=== PATIENT | female | born 1935 | race Caucasian/White ===

== ENCOUNTER 2019-08-07 10:51 | Inpatient (IN) | payer MEDICARE, SELFPAY ==
[2019-08-07] VITALS (12 sets, daily range): BP systolic 117–219; BP diastolic 61–126; PULSE 59–100; RESP 16–20; TEMP 36.7–36.9; O2SAT 92–95; BMI 17.2
--- NOTE | 2019-08-07 11:03 | PC.NURSE ---
Patient arrives via EMS with a chief complaint of weakness, nausea, vomiting, and cough. Patient reports that she was seen at [facility] last week and diagnosed with bronchitis. Patient states that she has been vomiting and weak, Patient denies abdominal pain.
--- NOTE | 2019-08-07 11:11 | XR_ITS ---
WS: [id number] XR chest 2V* 34740 REASON FOR EXAM: cough, difficulty breathing FINDINGS: The lung merritt are hyper aerated. Decreased vascularity is seen. There is some fibrosis ch anges noted. There is borderline enlarged. The hilum and apices are normal. XR/XR chest 2V* [id number] IMPRESSION: Chronic obstructive pulmonary disease with bronchitis changes.
--- NOTE | 2019-08-07 11:12 | W.ED.WEAKNES ---
HPI - Weakness General: Chief complaint: Shortness of Breath/Dyspnea Stated complaint: n/v, weakness Time Seen by Provider: 08/07/19 11:01 Source: patient, EMS and RN notes reviewed Mode of arrival: EMS Limitations: other (poor historian) History of Present Illness: HPI Narrative: Patient is an 83-year-old female who was brought in by EMS with complaints of cough, nausea, difficulty breathing. The patient was seen at [facility] 6 days ago and she says she was diagnosed with bronchitis. She says she has not filled her prescriptions that she was given as her daughter has not done it. She denies a fever. She however complains of headache. She also has markedly decreased appetite. She is therefore here to be evaluated. She feels generalized weakness. Associated symptoms: Reports chest pain and nausea; Denies dysuria or headache(s) Review of Systems General: Reports: 10 or more systems reviewed and unremarkable except in HPI and below Const: Reports: fatigue Eyes: Reports: blind spots; Denies: change in vision or blurry vision ENMT: Denies: throat pain, enlarged tonsils, painful swallowing, hoarseness, mouth pain or swelling of lips/tongue Card: Reports: chest pain; Denies: palpitations, irregular heart rhythm, edema or swelling of feet/ankles Resp: Reports: shortness of breath and non-productive cough GI: Reports: nausea : Denies: flank pain, difficulty urinating, painful urination, urinary frequency, urinary urgency or urinary hesitancy Musc: Denies: neck pain, back pain or extremity swelling Skin/Breast: Denies: rash, itching or redness Neuro: Denies: headache, numbness in extremities or weakness in extremities Endo: Denies: excessive urination, excessive thirst or tired all the time [facility] ED PFSH: Social History (Reviewed 08/07/19 @ 12:20 by Nabila Andrade MD, [facility]) Smoking and tobacco status: never smoked Physical Exam Const: COMMON NORMALS: no apparent distress, average body habitus, oriented x3, no limitations, healthy appearing, alert and well nourished HENMT: COMMON NORMALS: normocephalic, head/scalp atraumatic and moist oral mucous membranes HEAD & SCALP: normocephalic and atraumatic Eye: COMMON NORMALS: PERRL, EOMs intact bilaterally, conjunctivae normal and no scleral icterus CONJUNCTIVA: Yes conjunctivae normal PUPIL: Yes PERRL Neck/C-Spine: COMMON NORMALS: full ROM, supple, no meningeal signs, no JVD and no carotid bruits Chest: COMMONS NORMALS: inspection of chest normal and palpation of chest normal Resp: COMMON NORMALS: normal respiratory effort, no retractions, no use of accessory muscles and percussion normal AUSCULTATION: rales on the right in the lower lung merritt and on the left throughout PERCUSSION: percussion normal Cardio: COMMON NORMALS: no JVD, regular rate, regular rhythm, S1 normal heart sound, S2 normal heart sound, no gallops, no clicks, no murmurs, no rub and peripheral pulses 2+ throughout RATE: regular rate RHYTHM: regular rhythm HEART SOUNDS: S1 normal and S2 normal PERIPHERAL PULSES: pulses 2+ throughout GI: COMMON NORMALS: normal to inspection, nondistended, normoactive bowel sounds, soft to palpation, non-tender, no hepatosplenomegaly, no masses and no bruits PALPATION: Yes soft and Yes no hepatosplenomegaly : COMMON NORMALS: Yes no CVA tenderness BLADDER/KIDNEY EXAM: Yes no CVA tenderness Back/Pelvis: COMMON NORMALS: no CVA tenderness Extremity: COMMON NORMALS: normal to inspection, full ROM, normal capillary refill, no calf tenderness and no pedal edema Neuro: COMMON NORMALS: oriented x3 SENSORIUM/ORIENTATION: Yes alert MENINGEAL SIGNS: Yes no meningeal signs Skin: COMMON NORMALS: no rashes or lesions noted, no wounds, skin turgor normal, no jaundice, no petechiae and no mottling GENERAL SKIN EXAM: no rashes or lesions noted and turgor normal Course Consultations: Consultation #1: Dr. Conti, hospitalist. He kindly accepted the patient to his service Time: 14:45 Vital Signs: Vital signs: Vital Signs Temperature 98.4 F 08/07/19 10:53 Pulse Rate 59 L 08/07/19 11:59 Respiratory Rate 18 08/07/19 11:59 Blood Pressure 184/97 08/07/19 11:59 Pulse Oximetry 92 08/07/19 11:59 MDM - Weakness MDM Narrative: Medical decision making narrative: 83-year-old female who has been feeling unwell for at least 5 days. Her main complaints are cough and shortness of breath, including possible orthopnea. She also has some nausea and a little bit of confusion. She is very weak with dyspnea on exertion. She was seen at an emergency department in [place] about 5 days ago. According to her granddaughter the patient appears to be worse than she was at the time. Evaluation here is consistent with congestive heart failure. She has no prior history of CHF. She is therefore admitted for new onset CHF. She was also hyponatremic. Lab Data: Labs: Lab Results 08/07/19 08/07/19 08/07/19 Range/Units 11:19 11:19 11:19 WBC 9.9 (4.0-10.0) 10^3/ uL RBC 4.93 (4.1-5.3) 10^6/u L Hgb 14.8 (11.5-15.3) g/dL Hct 43.2 (37.0-47.0) % MCV 87.6 (81-99) fL MCH 30.0 (28.0-34.0) pg MCHC 34.3 (30.0-36.0) g/dL RDW 12.9 (12.1-15.1) % Plt Count 249 (130-400) 10^3/c mm MPV 11.8 H (7.4-10.4) fL Neut % (Auto) 78.9 % Lymph % (Auto) 15.4 % [place] % (Auto) 5.4 % Eos % (Auto) 0.0 % Baso % (Auto) 0.1 % Neut # (Auto) 7.8 H (1.8-7.7) 10^3/u L Lymph # (Auto) 1.5 (0.8-4.8) 10^3/u L [place] # (Auto) 0.5 (0.2-0.9) 10^3/u L Eos # (Auto) 0.0 (0.0-0.8) 10^3/u L Baso # (Auto) 0.0 (0.0-0.1) 10^3/u L Nucleated RBC % (a uto) 0 % Nucleated RBCs # 0.0 /100WBC D-Dimer (0-0.59) ug/mIFE U Sodium 128 L (136-145) mmol/L Potassium 4.1 (3.5-5.1) mmol/L Chloride 87 L (98-107) mmol/L Carbon Dioxide 25 (22-29) mmol/L Anion Gap 20.1 H (5-19) BUN 16 (8-23) mg/dL Creatinine 0.7 (0.5-0.9) mg/dL Glucose 95 (65-115) mg/dL Lactate 1.2 (0.5-2.2) mmol/L Calcium 9.1 (8.5-10.5) mg/dL Total Bilirubin 0.9 (0.15-1.2) mg/dL AST 18 (0-32) U/L ALT 9 (0-33) U/L Alkaline Phosphata se 88 (35-105) IU/L Troponin T Gen 5 n g/L C-Reactive Protein 3.9 (0.0-4.9) mg/L NT-Pro-B Natriuret Pep 3040 H (0-450) pg/mL Total Protein 7.3 (6.6-8.7) g/dL Albumin 3.8 (3.5-5.2) g/dL Globulin 3.5 (1.3-4.6) g/dL Lipase (13-60) U/L Influenza Type A A g (Negative) POC Influenza B Ag (Negative) 08/07/19 08/07/19 08/07/19 Range/Units 11:19 11:19 11:19 WBC (4.0-10.0) 10^3/ uL RBC (4.1-5.3) 10^6/u L Hgb (11.5-15.3) g/dL Hct (37.0-47.0) % MCV (81-99) fL MCH (28.0-34.0) pg MCHC (30.0-36.0) g/dL RDW (12.1-15.1) % Plt Count (130-400) 10^3/c mm MPV (7.4-10.4) fL Neut % (Auto) % Lymph % (Auto) % [place] % (Auto) % Eos % (Auto) % Baso % (Auto) % Neut # (Auto) (1.8-7.7) 10^3/u L Lymph # (Auto) (0.8-4.8) 10^3/u L [place] # (Auto) (0.2-0.9) 10^3/u L Eos # (Auto) (0.0-0.8) 10^3/u L Baso # (Auto) (0.0-0.1) 10^3/u L Nucleated RBC % (a uto) % Nucleated RBCs # /100WBC D-Dimer 0.46 (0-0.59) ug/mIFE U Sodium (136-145) mmol/L Potassium (3.5-5.1) mmol/L Chloride (98-107) mmol/L Carbon Dioxide (22-29) mmol/L Anion Gap (5-19) BUN (8-23) mg/dL Creatinine (0.5-0.9) mg/dL Glucose (65-115) mg/dL Lactate (0.5-2.2) mmol/L Calcium (8.5-10.5) mg/dL Total Bilirubin (0.15-1.2) mg/dL AST (0-32) U/L ALT (0-33) U/L Alkaline Phosphata se (35-105) IU/L Troponin T Gen 5 n g/L 18.22 C-Reactive Protein (0.0-4.9) mg/L NT-Pro-B Natriuret Pep (0-450) pg/mL Total Protein (6.6-8.7) g/dL Albumin (3.5-5.2) g/dL Globulin (1.3-4.6) g/dL Lipase 22 (13-60) U/L Influenza Type A A g (Negative) POC Influenza B Ag (Negative) 08/07/19 Range/Units 12:47 WBC (4.0-10.0) 10^3/ uL RBC (4.1-5.3) 10^6/u L Hgb (11.5-15.3) g/dL Hct (37.0-47.0) % MCV (81-99) fL MCH (28.0-34.0) pg MCHC (30.0-36.0) g/dL RDW (12.1-15.1) % Plt Count (130-400) 10^3/c mm MPV (7.4-10.4) fL Neut % (Auto) % Lymph % (Auto) % [place] % (Auto) % Eos % (Auto) % Baso % (Auto) % Neut # (Auto) (1.8-7.7) 10^3/u L Lymph # (Auto) (0.8-4.8) 10^3/u L [place] # (Auto) (0.2-0.9) 10^3/u L Eos # (Auto) (0.0-0.8) 10^3/u L Baso # (Auto) (0.0-0.1) 10^3/u L Nucleated RBC % (a uto) % Nucleated RBCs # /100WBC D-Dimer (0-0.59) ug/mIFE U Sodium (136-145) mmol/L Potassium (3.5-5.1) mmol/L Chloride (98-107) mmol/L Carbon Dioxide (22-29) mmol/L Anion Gap (5-19) BUN (8-23) mg/dL Creatinine (0.5-0.9) mg/dL Glucose (65-115) mg/dL Lactate (0.5-2.2) mmol/L Calcium (8.5-10.5) mg/dL Total Bilirubin (0.15-1.2) mg/dL AST (0-32) U/L ALT (0-33) U/L Alkaline Phosphata se (35-105) IU/L Troponin T Gen 5 n g/L C-Reactive Protein (0.0-4.9) mg/L NT-Pro-B Natriuret Pep (0-450) pg/mL Total Protein (6.6-8.7) g/dL Albumin (3.5-5.2) g/dL Globulin (1.3-4.6) g/dL Lipase (13-60) U/L Influenza Type A A g Negative (Negative) POC Influenza B Ag Negative (Negative) Imaging Data^: CXR: Radiologist's impression: [address] [address] XRay Report Signed Patient: Phoebe Avila #: [id number] : 1936Acct#:[id number] Age/Sex: 83 / FADM Date: 08/07/19 Loc: ERRoom/Bed: Attending Dr: Ordering Provider/Ordering MD: Nabila Andrade MD, [facility] Date of Service: 08/07/19 Procedure(s): XR chest 2V* 86087 Accession Number(s): [id number] Report Number: [id number] WS: [id number] XR chest 2V* 75800 REASON FOR EXAM: cough, difficulty breathing FINDINGS: The lung merritt are hyper aerated. Decreased vascularity is seen. There is some fibrosis changes noted. There is borderline enlarged. The hilum and apices are normal. XR/XR chest 2V* 31420 IMPRESSION: Chronic obstructive pulmonary disease with bronchitis changes. Dictated By:Jean Marie Whitlock DO Signed By:Jean Marie Whitlock DOSigned Date/Time:08/07/[address] Head: Radiologist's impression: [place] [address] CT Scan Report Signed Patient: Phoebe Avila #: [id number] : 1936Acct#:[id number] Age/Sex: 83 / FADM Date: 08/07/19 Loc: ERRoom/Bed: Attending Dr: Ordering Provider/Ordering MD: Nabila Andrade MD, [facility] Date of Service: 08/07/19 Procedure(s): CT head wo con* [id number] Accession Number(s): [id number] Report Number: [id number] WS: [id number] CT HEAD NONCONTRAST HISTORY: severe headache, hypertension TECHNIQUE: Contiguous axial imaging performed through the brain in 2.5 mm imaging. Bone and soft tissue windows. Sagittal and coronal reformats reviewed. All CT scans at [facility] use at least one of these dose optimization techniques: automated exposure control; mA and/or kV adjustment per patient size (includes targeted exams where dose is matched to clinical indication); or iterative reconstruction. DLP: 489.04 mGy.cm COMPARISON: None available. No acute intracranial hemorrhage, midline shift or mass effect. Mild atrophy with moderate periventricular low attenuation from chronic ischemic disease. 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 Ventricles: Normal size with no hydrocephalus. No inferior displacement of cerebellar tonsils. Paranasal sinuses: As visualized are clear. Mastoid air cells: Well pneumatized. Calvarium and scalp: Skull is intact with no soft tissue edema or swelling. Mild atherosclerosis intracranial carotid arteries. CT/CT head wo con* [id number] IMPRESSION: 1. No acute intracranial hemorrhage or edema. 2. Mild atrophy with moderate chronic microvascular ischemic disease. Dictated By:Liza Jose DO Signed By:Liza Jose DOSigned Date/Time:08/07/19 1252 DD/ 1250 EKG Data^: EKG 1: Attestation: I personally reviewed and interpreted this EKG as follows: EKG interpretation date: 08/07/19 EKG interpretation time: 13:47 Prior EKG tracings: not available for review Interpretation: Atrial fibrillation. Ventricular rate 82. No ST changes. 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
[2019-08-07 11:27] LABS: Basophils % 0.1 %; Hematocrit 43.2 % (37.0-47.0); Hemoglobin 14.8 g/dL (11.5-15.3); Lymphocytes # 1.5 10^3/uL (0.8-4.8); Lymphocytes % 15.4 %; Mean Corpuscular HGB Conc 34.3 g/dL (30.0-36.0); Mean Corpuscular Volume 87.6 fL (81-99); Mean Platelet Volume 11.8 fL (7.4-10.4); Monocytes # 0.5 10^3/uL (0.2-0.9); Monocytes % 5.4 %; Neutrophils # 7.8 10^3/uL (1.8-7.7); Neutrophils % 78.9 %; Nucleated Red Blood Cells % 0 %; Platelet Count 249 10^3/cmm (130-400); Red Blood Count 4.93 10^6/uL (4.1-5.3); Red Cell Distribution Width 12.9 % (12.1-15.1); White Blood Count 9.9 10^3/uL (4.0-10.0)
[2019-08-07 11:40] LABS: Lactate (Lactic Acid level) 1.2 mmol/L (0.5-2.2)
[2019-08-07 11:49] LABS: Alanine Aminotransferase 9 U/L (0-33); Albumin Level 3.8 g/dL (3.5-5.2); Alkaline Phosphatase 88 IU/L (35-105); Anion Gap 20.1 (5-19); Aspartate Amino Transferase 18 U/L (0-32); Blood Urea Nitrogen 16 mg/dL (8-23); C Reactive Protein 3.9 mg/L (0.0-4.9); Calcium 9.1 mg/dL (8.5-10.5); Carbon Dioxide 25 mmol/L (22-29); Chloride 87 mmol/L (98-107); Globulin 3.5 g/dL (1.3-4.6); Glucose 95 mg/dL (65-115); NT Pro B Type Natriuretic Pept 3040 pg/mL (0-450); Potassium 4.1 mmol/L (3.5-5.1); Sodium 128 mmol/L (136-145); Total Bilirubin 0.9 mg/dL (0.15-1.2); Total Protein 7.3 g/dL (6.6-8.7)
--- NOTE | 2019-08-07 12:07 | CT_ITS ---
WS: [id number] CT HEAD NONCONTRAST HISTORY: severe headache, hypertension TECHNIQUE: Contiguous axial imaging performed through the brain in 2.5 mm imaging. Bone and soft tiss ue windows. Sagittal and coronal reformats reviewed. All CT scans at [facility] use at ast one of these dose optimization techniques: automated exposure control; mA and/or kV adjustment pe r patient size (includes targeted exams where dose is matched to clinical indication); or iterative r econstruction. DLP: 489.04 mGy.cm COMPARISON: None available. No acute intracranial hemorrhage, midline shift or mass effect. Mild atrophy with moderate periventricular low attenuation from chronic ischemic disease. Prior lacun ar infarct in the RIGHT external capsule. Ventricles: Normal size with no hydrocephalus. No inferior displacement of cerebellar tonsils. Paranasal sinuses: As visualized are clear. Mastoid air cells: Well pneumatized. Calvarium and scalp: Skull is intact with no soft tissue edema or swelling. Mild atherosclerosis intracranial carotid arteries. CT/CT head wo con* 79738 IMPRESSION: 1. No acute intracranial hemorrhage or edema. 2. Mild atrophy with moderate chronic microvascular ischemic disease.
[2019-08-07 12:36] LABS: Lipase 22 U/L (13-60)
[2019-08-07 13:26] LABS: Influenza A by IFA Negative (Negative); Influenza B by IFA Negative (Negative)
--- NOTE | 2019-08-07 13:30 | ECG_ITS ---
Measurements Intervals [place] Rate: 82 P: MI: 0 QRS: 57 QRSD: 95 T: 85 QT: 379 QTc: 445 ATRIAL FIBRILLATION WITH ABERRANT CONDUCTION OR VENTRICULAR PREMATURE COMPLEXES NONSPECIFIC ST & T-WAVE ABNORMALITY Compared to ECG 09/28/2017 11:40:24 Ventricular premature complex(es) now present Aberrant conduction of supraventricular beat(s) now present T-wave abnormality now present ST (T wave) deviation no longer present Electronically Signed On 08-07-2019 16:56:26 PATIENT ACCOUNTS CLERK by Alysa Joseph M.D. [email or web address]
[2019-08-07 13:33] LABS: D Dimer 0.46 ug/mIFEU (0-0.59)
[2019-08-07] MEDS: sodium chloride 0.9% 500 ML 150 ML IV (13:40)
[2019-08-07] MEDS: diphenhydrAMINE 50 mg/mL SDV 1mL 25 MG IVP (13:56)
[2019-08-07] MEDS: ketorolac 30 mg/mL INJ 15 MG IVP (13:56)
[2019-08-07] MEDS: hyDRALAzine 20 mg/mL INJ 1 mL 5 MG IVP (14:09)
[2019-08-07] MEDS: FUROsemide 10 mg/mL SDV 2mL 20 MG IVP (15:11)
[2019-08-07 15:13] LABS: Troponin T (5th) Once 18.22
--- NOTE | 2019-08-07 16:18 | PM.HP ---
Providers/Chief Complaint Admitting Physician: Liang Conti MD Chief Complaint: Dyspnea;resp failure History of Present Illness Phoebe Avila is a 83 year old female with a past medical history of CAD, atrial fibrillation on sotalol not on anticoagulation due to history of GI bleeds, hypertension, hyperlipidemia recent history of bronchitis who presents to the emergency room for not feeling well. Patient states that for the last week and a half she just has not been feeling well, fatigue, malaise, weakness, poor appetite. Patient was at [facility], diagnosed with bronchitis, was not put on any antibiotics, was put on antitussive agents, and sent home. Patient states that she has a mild nonproductive cough, intermittent fevers, no chills, feels nauseous, no vomiting, just does not have an appetite, no diarrhea, he denies dysuria, but states that she has been urinating more frequently. She also feels lightheaded, dizzy. Patient denies any black stools. But according to family members she is reported to them that she has had black stools last week. No hemoptysis. No abdominal pain. Patient states that her brother has a URI. Denies sinus pain, sinus congestion, but has a productive cough white phlegm, feels feverish but no fevers at home, no chills. Patient denies any history of lung disease, no history of COPD, no history of smoking, no history of asthma. She has a history of CAD, status post stenting x2, denies any chest pain, denies any palpitations, but does state that at times she is felt more short of breath. Patient states that she lives by herself [place], her sister checks up on her. She has a history of atrial fibrillation, is on sotalol, no anticoagulation as she had a history of internal bleeding 2 years back, and a history of GI bleed. Patient's daughter is worried about her mother state, she states that this is not her, to her she looks very ill, very sick and she is worried about her. Of note patient recently was in [facility] emergency room, her flu was negative, her platelet count according to her daughter was low, she was diagnosed with acute bronchitis and sent home. Here in the emergency room patient's influenza was negative, chest x-ray shows mild vascular congestion, BNP was 3040, sodium was 128, EKG showed atrial fibrillation heart rates 80s. Patient blood pressure 143/61, pulse 69, respiratory 18, temperature 98.4, saturating 93% on room air. Review of Systems Const: Reports: fever, change in appetite, change in weight, fatigue and malaise; Denies: chills Eyes: Denies: change in vision or blurry vision ENMT: Denies: nasal congestion Card: Denies: chest pain or palpitations Resp: Reports: productive cough; Denies: shortness of breath, non-productive cough or wheezing GI: Reports: nausea; Denies: abdominal pain, vomiting, vomiting blood, diarrhea, constipation, blood in stool or black tarry stool : Denies: flank pain, painful urination or urinary frequency Musc: Denies: neck pain or back pain Skin/Breast: Denies: rash Neuro: Denies: headache, dizziness or vertigo Psych: Denies: anxiety or depression Endo: Reports: excessive urination; Denies: excessive thirst Medications/Allergies Home Medications Medication Instructions Recorded Confirmed Last Taken Type amlodipine 5 mg PO DAILY 08/07/19 08/07/19 08/06/19 History atorvastatin 40 mg PO BEDTIME 08/07/19 08/07/19 08/06/19 History benzonatate [Tessalon Perles] 100 mg PO TID PRN 08/07/19 08/07/19 08/06/19 History clopidogrel 75 mg PO DAILY 08/07/19 08/07/19 08/06/19 History lisinopril 20 mg PO DAILY 08/07/19 08/07/19 08/06/19 History sotalol 80 mg PO BID 08/07/19 08/07/19 08/06/19 History Allergies Allergy/AdvReac Type Severity Reaction Status Date / Time No Known Allergies Allergy Verified 08/07/19 12:17 PFSH Acute PFSH: Medical History (Updated 08/07/19 @ 16:36 by Liang Conti MD) Atrial fibrillation CAD (coronary artery disease) History of GI bleed Hyperlipidemia Hypertension Surgical History (Updated 08/07/19 @ 16:30 by Liang Conti MD) History of coronary angioplasty with insertion of stent Family History (Updated 08/07/19 @ 16:31 by Liang Conti MD) Other CAD (coronary artery disease) Social History (Updated 08/07/19 @ 16:31 by Liang Conti MD) Smoking and tobacco status: never smoked Alcohol intake: never Substance/Drug Use: never Vitals/I&O/Wt Last Vital Signs Temp 98.4 F 08/07/19 10:53 Pulse 75 08/07/19 15:30 Resp 18 08/07/19 15:30 BP 143/65 08/07/19 15:30 Pulse Ox 93 08/07/19 15:30 Weight last 48 hrs Weight 42.638 kg Physical Exam Const: COMMON NORMALS: no apparent distress and oriented x3 GENERAL APPEARANCE: cooperative and comfortable HENMT: COMMON NORMALS: normocephalic HEAD & SCALP: normocephalic Eye: COMMON NORMALS: PERRL, EOMs intact bilaterally and no papilledema GENERAL EYE: normal appearance of both eyes PUPIL: Yes PERRL DIRECT OPHTHALMOSCOPY: Yes no papilledema Neck/C-Spine: COMMON NORMALS: full ROM, no lymphadenopathy, no JVD and thyroid normal THYROID: thyroid normal Lymph: LYMPHATIC: lymphadenopathy (Right cervical lymphadenopathy left supraclavicular lymphadenopathy) Resp: COMMON NORMALS: normal respiratory effort, no retractions, no use of accessory muscles and clear to auscultation bilaterally AUSCULTATION: clear to auscultation bilaterally Cardio: COMMON NORMALS: no JVD, regular rate, regular rhythm, S1 normal heart sound, S2 normal heart sound, no gallops, no clicks and no murmurs RATE: regular rate RHYTHM: regular rhythm HEART SOUNDS: S1 normal and S2 normal GI: COMMON NORMALS: normal to inspection, nondistended, normoactive bowel sounds, soft to palpation and non-tender PALPATION: Yes soft, No firm, No tender, No guarding, No rigid, Yes no hepatosplenomegaly and Yes mass (Umbilical density, mass palpated, 1 x 1 cm) : COMMON NORMALS: Yes no CVA tenderness Extremity: COMMON NORMALS: normal to inspection, full ROM and no pedal edema Neuro: COMMON NORMALS: oriented x3, CN's II-XII intact bilaterally, moves all extremities and no focal motor deficits Psych: COMMON NORMALS: mental status grossly normal, thought process normal and cooperative THOUGHT PROCESS: normal thought process Data : 08/07/19 11:19 08/07/19 11:19 A&P Assessment and plan (1) Weakness generalized: -Generalized weakness, fatigue, malaise, weight loss, poor appetite -Etiology uncertain -Patient does have right cervical lymphadenopathy, left supraclavicular lymphadenopathy, abdominal density -Plan: -We will do CT chest abdomen pelvis -PT OT Status: Acute Code(s): R53.1 - Weakness (2) Hyponatremia: -Hypovolemic hyponatremia -Receiving normal saline, decrease rate to 125 Status: Acute Code(s): E87.1 - Hypo-osmolality and hyponatremia (3) CAD (coronary artery disease): Status post stenting x2 to left circumflex No active chest pain Initial EKG no significant ST-T wave changes Baseline troponin within normal limits Plan: -Telemetry monitoring Status: Acute Code(s): I25.10 - Atherosclerotic heart disease of [place] coronary artery without angina pectoris (4) Hypertension: Continue home medications except lisinopril Status: Acute Code(s): I10 - Essential (primary) hypertension (5) Hyperlipidemia: Continue home medications Status: Acute Code(s): E78.5 - Hyperlipidemia, unspecified (6) Atrial fibrillation: Continue sotalol No anticoagulation as she has a history of GI bleeds Status: Acute Code(s): I48.91 - Unspecified atrial fibrillation (7) Acute bronchitis: -Doxycycline 100 twice daily -Albuterol nebulizers -Antitussive agents Status: Acute Code(s): J20.9 - Acute bronchitis, unspecified Attestations Medical Necessity Statement*: Patient requires hospitalization, outpatient with observation, hyponatremia, deconditioning, weakness, Coding Level of Care Code Acute 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
[2019-08-07 16:39] LABS: C Reactive Protein 3.7 mg/L (0.0-4.9)
[2019-08-07 16:49] LABS: Thyroid Stimulating Hormone 2.67 uIU/mL (0.27-4.20)
[2019-08-07 16:51] LABS: Estmated Average Glucose 126
--- NOTE | 2019-08-07 16:51 | USCV_ITS ---
Phoebe Avila Age: 83 Gender: F : 1935 Exam Date: 08/07/2019 18:29 Ordering Phys: Liang Conti MD Technologist: Leslee Luis [place] [facility] [place]: weakness, fatigue, Evaluate for CHF BP: / HR: 99 Rhythm: Sinus Technical Quality: Adequate MEASUREMENTS (Male / Female) Normal Values 2D ECHO LV Diastolic Diameter PLAX 2.5 cm 4.2 - 5.9 / 3.9 - 5.3 cm LV Systolic Diameter PLAX 1.3 cm LV Chamber Size 1.7 cm IVS Diastolic Thickness 0.9 cm 0.6 - 1.0 / 0.6 - 0.9 cm IVS Systolic Thickness 1.3 cm LVPW Diastolic Thickness 1.7 cm 0.6 - 1.0 / 0.6 - 0.9 cm LVPW Systolic Thickness 1.8 cm RV Chamber Size 2.2 cm LVOT Diameter 2.1 cm LV Ejection Fraction 2D Teich 82.1 % LV Ejection Fraction MOD 2C 60.7 % LV Ejection Fraction 2C AL 62.0 % LA Diameter 3.8 cm LA Width 2.7 cm LA Height 4.3 cm RA Width 3.6 cm RA Height 4.4 cm Aorta at Sinotubular Diameter 2.3 cm M-MODE LV Diastolic Diameter MM 2.9 cm 4.2 - 5.9 / 3.9 - 5.3 cm LV Systolic Diameter MM 1.2 cm LV Ejection Fraction MM Teich 90.1 % IVS Diastolic Thickness MM 0.9 cm 0.6 - 1.0 / 0.6 - 0.9 cm IVS Systolic Thickness MM 0.9 cm LVPW Diastolic Thickness MM 1.0 cm 0.6 - 1.0 / 0.6 - 0.9 cm LVPW Systolic Thickness MM 1.3 cm Aortic Annulus Diameter 2.2 cm LA Ao Ratio MM 1.7 MV E Point Septal Separation 0.5 cm DOPPLER AV Peak Velocity 119.0 cm/s LVOT Peak Velocity 92.0 cm/s AV Area Cont Eq vti 2.6 cm squared AV Area Cont Eq pk 2.6 cm squared MV Area PHT 3.5 cm squared Mitral E to A Ratio 4.0 MV E' Velocity 13.0 cm/s Mitral E to MV E' Ratio 7.3 Mitral E to LV E' Lateral Ratio 8.6 Mitral E to LV E' Septal Ratio 6.4 TR Peak Velocity 170.0 cm/s TR Peak Gradient 11.5 mmHg TR Mean Velocity 247.5 cm/s TR Mean Gradient 29.7 mmHg TR Velocity Time Integral 115.5 cm TV Peak E Velocity 73.0 cm/s Right Atrial Pressure 3.0 mmHg Pulmonary Artery Systolic Pressu 14.6 mmHg PV Peak Velocity 97.0 cm/s RV Acceleration Time 0.1 s RV Ejection Time 0.4 s RV AcT/ET 0.2 FINDINGS Left Ventricle Normal left ventricular cavity size. Normal left ventricular systolic function. Left ventricular ejection fraction is estimated at 60 %. This study is inadequate for estimation of regional wall motion abnormality. Rhythm precludes evaluation of diastolic function. Right Ventricle Normal right ventricular size and systolic function. Right ventricular systolic pressure 44 mmHg. Right Atrium Right atrium not well visualized. Left Atrium Mildly increased left atrial size. Mitral Valve Mild mitral annular calcification. Mildly thickened mitral valve. No mitral valve stenosis. Trace mitral valve regurgitation. Aortic Valve Mildly thickened and calcified trileaflet aortic valve. No aortic valve stenosis. No aortic valve regurgitation. Tricuspid Valve Structurally normal tricuspid valve. No tricuspid valve stenosis. [id number] tricuspid valve regurgitation. Pulmonic Valve Pulmonic valve not well visualized. Mild pulmonary valve regurgitation. Pericardium No pericardial effusion. Aorta Aorta not well visualized. CONCLUSIONS 1. This is a technically difficult study. 2. Normal left ventricular cavity size. Normal left ventricular systolic function. Left ventricular ejection fraction is estimated at 60 %. This study is inadequate for estimation of regional wall motion abnormality. 3. Normal right ventricular size and systolic function. 4. Mild pulmonary hypertension with pulmonary artery pressure estimated at 44 mmHg. 5. When compared to previous echocardiogram report dated 01/19/2013, tricuspid valve regurgitation seems to have worsened. Alysa Joseph MD (Electronically Signed) Final Date: 08 August 2019 17:00 S
--- NOTE | 2019-08-07 16:51 | CTR_ITS ---
PROCEDURE INFORMATION: Exam: CT Chest Without Contrast Exam date and time: 08/07/2019 5:22 PM Age: 83 years old Clinical indication: Other: Lymphadenopathy; Abdominal pain; Cough; Chest pain; Additional info: Lymphadenopathy, cough, abdominal pain TECHNIQUE: Imaging protocol: Computed tomography of the chest without contrast. Radiation optimization: All CT scans at this facility use at least one of these dose optimization techniques: automated exposure control; mA and/or kV adjustment per patient size (includes targeted exams where dose is matched to clinical indication); or iterative reconstruction. COMPARISON: No relevant prior studies available. FINDINGS: Lungs: Right upper lobe calcified granuloma. Pleural space: Unremarkable. No pneumothorax. No pleural effusion. Heart: Coronary artery atherosclerotic calcifications. Aorta: Unremarkable. No aortic aneurysm. Lymph nodes: Unremarkable. No enlarged lymph nodes. Bones/joints: Unremarkable. No acute fracture. Soft tissues: Unremarkable. IMPRESSION: 1. Negative for infiltrate. 2. Coronary artery atherosclerotic calcifications. 3. Right upper lobe calcified granuloma. PROCEDURE INFORMATION: Exam: CT Abdomen And Pelvis Without Contrast Exam date and time: 08/07/2019 5:22 PM Age: 83 years old Clinical indication: Other: Lymphadenopathy; Abdominal pain; Cough; Chest pain; Additional info: Lymphadenopathy, cough, abdominal pain TECHNIQUE: Imaging protocol: Computed tomography of the abdomen and pelvis without contrast. Radiation optimization: All CT scans at this facility use at least one of these dose optimization techniques: automated exposure control; mA and/or kV adjustment per patient size (includes targeted exams where dose is matched to clinical indication); or iterative reconstruction. COMPARISON: No relevant prior studies available. FINDINGS: Liver: Normal. No mass. Gallbladder and bile ducts: Normal. No calcified stones. No ductal dilation. Pancreas: Normal. No ductal dilation. Spleen: Normal. No splenomegaly. Adrenals: Normal. No mass. Kidneys and ureters: Normal. No hydronephrosis. Stomach and bowel: Constipation. Appendix: No evidence of appendicitis. Intraperitoneal space: Unremarkable. No free air. No significant fluid collection. Vasculature: Unremarkable. No abdominal aortic aneurysm. Lymph nodes: Unremarkable. No enlarged lymph nodes. Bladder: Unremarkable as visualized. Reproductive: Unremarkable as visualized. Bones/joints: Unremarkable. No acute fracture. Soft tissues: Unremarkable. CT/CT chest abd pel wo con IMPRESSION: 1. Negative for acute inflammatory process. 2. Constipation. Radiation Dose CTDIVOL = (mGy): DLP = 956.6~956.6 (mGy-cm)
[2019-08-07 17:08] LABS: Erythrocyte Sedimentation Rate 19 mm/hr (0-15)
[2019-08-07 17:23] LABS: Procalcitonin 0.05 ng/mL (0-0.5)
[2019-08-07] MEDS: sodium chloride 0.9% 1,000 ML 75 ML IV (17:58)
[2019-08-07] MEDS: doxycycline 100 mg Tablet PO (17:58)
[2019-08-07] MEDS: sotalol 80 mg Tablet PO (17:58)
[2019-08-07 18:22] LABS: Add Urine Microscopic? YES; Bilirubin Urine Neg (NEGATIVE); Blood Urine Neg (Negative); Glucose Urine UA Norm (Normal); Ketones Urine 2+ (Negative); Leukocyte Esterase Urine Negative (Negative); Nitrate Urine Negative (Negative); Protein Urine 1+ (Negative); Squamous Epithelial Cell Urine 0-4 (0-5); Urine Appearance Clear (CLEAR); Urine Color Yellow (Yellow); Urobilinogen Urine Norm (Negative); WBC Urine 0-4 /hpf (0-5); pH Urine 6 (5-7)
[2019-08-07 18:23] LABS: Add Urine Culture? No; Bacteria Urine TRACE; Hyaline Casts Urine RARE; Mucus Urine TRACE
--- NOTE | 2019-08-07 20:18 | PC.NURSE ---
Patient would not wake up enough to take atorvastatin. Patient would only open eyes for seconds at a time while I was trying to give medication.
[2019-08-08] VITALS (8 sets, daily range): BP systolic 118–160; BP diastolic 53–74; PULSE 52–65; RESP 12–20; TEMP 36.3–36.6; O2SAT 92–96
[2019-08-08 05:06] LABS: Eosinophils % 0.3 %; Lymphocytes # 2.3 10^3/uL (0.8-4.8); Lymphocytes % 31.1 %; Mean Corpuscular HGB Conc 33.3 g/dL (30.0-36.0); Mean Corpuscular Hemoglobin 31.1 pg (28.0-34.0); Mean Corpuscular Volume 93.3 fL (81-99); Monocytes # 1.1 10^3/uL (0.2-0.9); Neutrophils % 53.3 %; Nucleated Red Blood Cells % 0 %; Platelet Count 200 10^3/cmm (130-400); Red Blood Count 4.18 10^6/uL (4.1-5.3); Red Cell Distribution Width 13.3 % (12.1-15.1); White Blood Count 7.4 10^3/uL (4.0-10.0)
[2019-08-08 05:31] LABS: Alanine Aminotransferase 7 U/L (0-33); Albumin Level 2.8 g/dL (3.5-5.2); Alkaline Phosphatase 64 IU/L (35-105); Blood Urea Nitrogen 20 mg/dL (8-23); Calcium 8.6 mg/dL (8.5-10.5); Carbon Dioxide 21 mmol/L (22-29); Chloride 97 mmol/L (98-107); Glucose 81 mg/dL (65-115); Magnesium 1.8 mg/dL (1.7-2.3); Phosphorus 3.2 mg/dL (2.5-4.5); Sodium 130 mmol/L (136-145); Total Bilirubin 0.7 mg/dL (0.15-1.2); Total Protein 5.8 g/dL (6.6-8.7)
[2019-08-08 05:33] LABS: Chol HDL Ratio 3.45 mg/dL (0.0-4.40); Cholesterol 114 mg/dL (0-200); HDL Cholesterol 33 mg/dL (60-100); LDL Cholesterol Calculated 62 mg/dL (50-129); LDL HDL Ratio 1.88 RATIO (0.00-3.22); Triglycerides 95 mg/dL (0-150)
[2019-08-08 05:52] LABS: Aspartate Amino Transferase 20 U/L (0-32)
[2019-08-08] MEDS: sotalol 80 mg Tablet PO ×2 (08:41→17:28)
[2019-08-08] MEDS: clopidogrel 75 mg Tablet PO (08:42)
[2019-08-08] MEDS: amlodipine 5 mg Tablet PO (08:42)
[2019-08-08] MEDS: doxycycline 100 mg Tablet PO ×2 (08:42→17:28)
[2019-08-08] MEDS: sodium chloride 0.9% 1,000 ML 75 ML IV ×2 (08:43→22:36)
--- NOTE | 2019-08-08 11:45 | PC.CHAP ---
Pastoral Care Encounter/Spiritual Assessment Type of Contact [] Declined java developer visit [] Patient/Family/Request visit [] Outpatient visit [] Follow-up visit [] Physician referral [] Code/Alert [x] Routine visit [] Staff referral [] Actively dying [] Patient sleeping [] Family support [] [] Out of room [] Palliative care [] [] Receiving care in room [] Pre-surgical visit [] Trauma [] Long length of stay [] ICU visit [] Other: Relational/Emotional Strength [x] Patient feels connected with others/family/visitors/staff [] Distress [] Loneliness/isolation [] Abandonment Spirituality of Patient [x] Person of Nessa [x] Attends Anglican of their Nessa [x] Believes in Prayer [] Reads Bible or Voodoo materials [] There are Spiritual issues to be addressed Dural Mechanic Interventions [x] Prayer [] Active listening []x Non-anxious presence [] Spiritual/emotional support [] Crisis/trauma care [] Spiritual counseling [] Bereavement support [] Provided bereavement packet [] Provided Bible/devotional materials [] Provided toy/stuffed animal, coloring book to patient or family member [] Provided Communion [] Anointing/[place] [] Salvation [x] Completed spiritual assessment [] Other: Impact on Illness or Injury [] Angry [] Fearful [x] Anxious [] Often cries [] Exhaustion [] Unable to work [] Unable to attend latter-day [] Unable to walk/stand [] Unable to read [] Unable to drive [] Unable to eat/drink [] Unable to sleep [] Unable to be with family [] Patient intubated [] Other: Summary patient seems week Time spent with patient 10 min
[2019-08-08] MEDS: cefTRIAXone 1,000 MG in sodium chloride 0.9% (plus) 50 ML 100 MG IV (12:16)
--- NOTE | 2019-08-08 14:03 | PM.PN ---
Subjective Subjective: Interval history: This morning patient was examined with daughters at bedside, patient states that she does not want to go to retirement, she continues to have a poor appetite but she believes is due to the hospital food, she is still not drinking enough water, according to nurses and her daughters she has episodes of confusion, but patient denies this, no dysuria, no hematuria, no fevers, chills, no cough, no abdominal pain, no diarrhea, no chest pain, Vitals/I&O/Wt Last Vital Signs Temp 97.6 F 08/08/19 11:04 Pulse 58 L 08/08/19 13:35 Resp 16 08/08/19 13:35 BP 140/62 08/08/19 11:04 Pulse Ox 95 08/08/19 13:35 08/07/19 08/08/19 08/08/19 22:59 06:59 14:59 Intake Total 0 / 0 1665 / 1665 Balance 0 / 0 1665 / 1665 Weight last 48 hrs Weight 48.081 kg Weight 51.284 kg Weight 42.638 kg Physical Exam Const: COMMON NORMALS: no apparent distress and oriented x3 GENERAL APPEARANCE: cooperative and comfortable HENMT: COMMON NORMALS: normocephalic HEAD & SCALP: normocephalic Neck/C-Spine: COMMON NORMALS: full ROM, no lymphadenopathy, no JVD and thyroid normal THYROID: thyroid normal Resp: COMMON NORMALS: normal respiratory effort, no retractions, no use of accessory muscles and clear to auscultation bilaterally AUSCULTATION: clear to auscultation bilaterally Cardio: COMMON NORMALS: no JVD, regular rate, regular rhythm, S1 normal heart sound, S2 normal heart sound, no gallops, no clicks and no murmurs RATE: regular rate RHYTHM: regular rhythm HEART SOUNDS: S1 normal and S2 normal GI: COMMON NORMALS: normal to inspection, nondistended, normoactive bowel sounds, soft to palpation and non-tender PALPATION: Yes soft, No firm, No tender, No guarding and No rigid : COMMON NORMALS: Yes no CVA tenderness BLADDER/KIDNEY EXAM: Yes no CVA tenderness Back/Pelvis: COMMON NORMALS: no CVA tenderness Extremity: COMMON NORMALS: normal to inspection, full ROM and no pedal edema Neuro: COMMON NORMALS: oriented x3 Psych: COMMON NORMALS: mental status grossly normal, thought process normal and cooperative THOUGHT PROCESS: normal thought process Data : 08/08/19 04:44 08/08/19 04:44 A&P Assessment and plan (1) Weakness generalized: -Generalized weakness, fatigue, malaise, weight loss, poor appetite -Etiology uncertain -CT chest, abdomen, pelvis has no acute findings -Blood work has been relatively unremarkable -Hemoglobin is 13 -Urine shows positive WBCs, possible UTI? We will empirically treat her for Rocephin see if her mentation improves -Her sodium is 130, improved to 128, continue fluids, likely hypovolemic hyponatremia Status: Acute Code(s): R53.1 - Weakness (2) Hyponatremia: -Hypovolemic hyponatremia -Receiving normal saline, sodium increased to 130 Status: Acute Code(s): E87.1 - Hypo-osmolality and hyponatremia (3) CAD (coronary artery disease): Status post stenting x2 to left circumflex No active chest pain Initial EKG no significant ST-T wave changes Baseline troponin within normal limits Plan: -Telemetry monitoring Status: Acute Code(s): I25.10 - Atherosclerotic heart disease of [place] coronary artery without angina pectoris (4) Hypertension: Continue home medications except lisinopril Status: Acute Code(s): I10 - Essential (primary) hypertension (5) Hyperlipidemia: Continue home medications Status: Acute Code(s): E78.5 - Hyperlipidemia, unspecified (6) Atrial fibrillation: Continue sotalol No anticoagulation as she has a history of GI bleeds Status: Acute Code(s): I48.91 - Unspecified atrial fibrillation (7) Acute bronchitis: -Doxycycline 100 twice daily -Albuterol nebulizers -Antitussive agents Status: Acute Code(s): J20.9 - Acute bronchitis, unspecified Attestations Medical Necessity Statement*: She requires continued hospitalization, for weakness, deconditioning Coding Level of Care Code 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
--- NOTE | 2019-08-08 14:57 | PC.NURSE ---
Patient refusing telemetry at this time, Dr Conti notified, no new orders received.
--- NOTE | 2019-08-08 14:58 | PC.NURSE ---
Patient refusing relemetry at this time, Dr Conti notified, no new orders received.
[2019-08-08 18:49] LABS: Alanine Aminotransferase 8 U/L (0-33); Alkaline Phosphatase 64 IU/L (35-105); Anion Gap 14.4 (5-19); Aspartate Amino Transferase 18 U/L (0-32); Blood Urea Nitrogen 15 mg/dL (8-23); Calcium 8.6 mg/dL (8.5-10.5); Carbon Dioxide 26 mmol/L (22-29); Chloride 97 mmol/L (98-107); Globulin 3.1 g/dL (1.3-4.6); Glucose 98 mg/dL (65-115); Potassium 3.4 mmol/L (3.5-5.1); Sodium 134 mmol/L (136-145); Total Bilirubin 0.5 mg/dL (0.15-1.2); Total Protein 6.1 g/dL (6.6-8.7)
--- NOTE | 2019-08-08 19:48 | PC.NURSE ---
Pt verbalizes to this nurse that she wishes to be a DNR. Pt states she does not want any life saving measures, no medications, no CPR, no intubation, no ventilation, no defibrillation, absolutely nothing, pts states she wants to pass peacefully. asked patient a series of cognitive questions, she is currently alert and oriented X4, pts granddaughter Samantha Sanchez present and witnessed, family is supportive of patients decision.
[2019-08-08] MEDS: atorvastatin 40 mg Tablet PO (22:36)
[2019-08-09] VITALS (9 sets, daily range): BP systolic 145–196; BP diastolic 61–89; PULSE 57–73; RESP 16–20; TEMP 36.4–36.8; O2SAT 93–97; BMI 20.3
[2019-08-09 04:54] LABS: Basophils % 0.3 %; Eosinophils # 0.1 10^3/uL (0.0-0.8); Eosinophils % 1.3 %; Hematocrit 39.1 % (37.0-47.0); Hemoglobin 12.8 g/dL (11.5-15.3); Lymphocytes # 1.6 10^3/uL (0.8-4.8); Lymphocytes % 22.6 %; Mean Corpuscular HGB Conc 32.7 g/dL (30.0-36.0); Mean Corpuscular Hemoglobin 30.8 pg (28.0-34.0); Mean Corpuscular Volume 94.2 fL (81-99); Mean Platelet Volume 11.2 fL (7.4-10.4); Monocytes % 13.8 %; Neutrophils # 4.5 10^3/uL (1.8-7.7); Neutrophils % 61.9 %; Nucleated Red Blood Cells % 0 %; Platelet Count 171 10^3/cmm (130-400); Red Blood Count 4.15 10^6/uL (4.1-5.3); Red Cell Distribution Width 13.3 % (12.1-15.1); White Blood Count 7.2 10^3/uL (4.0-10.0)
[2019-08-09 05:09] LABS: Alanine Aminotransferase 7 U/L (0-33); Albumin Level 2.8 g/dL (3.5-5.2); Alkaline Phosphatase 60 IU/L (35-105); Anion Gap 13.7 (5-19); Aspartate Amino Transferase 18 U/L (0-32); Blood Urea Nitrogen 9 mg/dL (8-23); Calcium 8.6 mg/dL (8.5-10.5); Carbon Dioxide 27 mmol/L (22-29); Chloride 102 mmol/L (98-107); Glucose 94 mg/dL (65-115); Magnesium 1.6 mg/dL (1.7-2.3); Phosphorus 2.4 mg/dL (2.5-4.5); Potassium 3.7 mmol/L (3.5-5.1); Sodium 139 mmol/L (136-145); Total Bilirubin 0.6 mg/dL (0.15-1.2); Total Protein 5.8 g/dL (6.6-8.7)
[2019-08-09] MEDS: amlodipine 5 mg Tablet PO ×2 (08:08→22:56)
[2019-08-09] MEDS: doxycycline 100 mg Tablet PO (08:08)
[2019-08-09] MEDS: clopidogrel 75 mg Tablet PO (08:08)
[2019-08-09] MEDS: acetaminophen 325 mg Tablet 650 MG PO (08:09)
[2019-08-09] MEDS: sotalol 80 mg Tablet PO ×2 (08:09→17:03)
--- NOTE | 2019-08-09 10:10 | PC.OT ---
OT TREATMENT ATTEMPTED THIS A.M. PATIENT REPORTS, NOT RIGHT NOW. LET ME THINK ABOUT IT. (GROOMING AT SINK) IS AGREEABLE TO MY ATTEMPT THIS AFTERNOON.
[2019-08-09] MEDS: cefTRIAXone 1,000 MG in sodium chloride 0.9% (plus) 50 ML 100 MG IV (11:18)
[2019-08-09] MEDS: sodium chloride 0.9% 1,000 ML 75 ML IV (11:18)
--- NOTE | 2019-08-09 11:56 | P.PN_ITS ---
Subjective Subjective: Interval history: This morning patient was examined with daughters at bedside, patient states that she does not want to go to long-term, she continues to have a poor appetite. NO further confusion. Is Alert and oriented at present. Denies any dysuria, no hematuria, no fevers, chills, no cough, no abdominal pain, no diarrhea, no chest pain, Vitals/I&O/Wt Last Vital Signs Temp 98.0 F 08/09/19 10:59 Pulse 71 08/09/19 10:59 Resp 16 08/09/19 10:59 BP 160/74 08/09/19 10:59 Pulse Ox 95 08/09/19 10:59 08/08/19 08/09/19 08/09/19 22:59 06:59 14:59 Intake Total 701.25 / 2682.50 1132.5 / 1132.5 Output Total 400 / 400 300 / 700 Balance 301.25 / 2282.50 -300 / 1982.50 1132.5 / 1132.5 Weight last 48 hrs Weight 50.491 kg Weight 50.491 kg Weight 48.081 kg Weight 51.284 kg Physical Exam Narrative: EXAM NARRATIVE: General: No acute distress, AO x3 HEENT: PERRLA, pupils bilaterally equal and reactive Chest: Normal vesicular breath sounds, no added sounds, equal good air entry bilaterally CVS: S1-S2 regular, no murmurs, no tachycardia, no gallops, no rubs Abdomen: Soft, nontender, no organomegaly, bowel sounds present Neuro: No focal deficits, no facial deformity, AO x3, power 5/5 in all limbs Data : 08/09/19 04:47 08/09/19 04:47 A&P Assessment and plan (1) Weakness generalized: Status: Acute Code(s): R53.1 - Weakness (2) Hyponatremia: Status: Acute Code(s): E87.1 - Hypo-osmolality and hyponatremia (3) CAD (coronary artery disease): Status post stenting x2 to left circumflex No active chest pain Initial EKG no significant ST-T wave changes Baseline troponin within normal limits Plan: -Telemetry monitoring Status: Acute Code(s): I25.10 - Atherosclerotic heart disease of [place] coronary artery without angina pectoris (4) Hypertension: Status: Acute Code(s): I10 - Essential (primary) hypertension (5) Hyperlipidemia: Continue home medications Status: Acute Code(s): E78.5 - Hyperlipidemia, unspecified (6) Atrial fibrillation: Continue sotalol No anticoagulation as she has a history of GI bleeds Status: Acute Code(s): I48.91 - Unspecified atrial fibrillation (7) Acute bronchitis: Status: Acute Code(s): J20.9 - Acute bronchitis, unspecified Additional A&P Information Genralized weakness: Etiology unknown. Most likely due to bronchitis in setting of advanced age and generalized deconditioning prior to the event. Leading to poor intake causing hyponatremia. CT chest, abdomen pelvis done on third admission unremarkable for any acute findings. Blood work is unremarkable as well with a normal hemoglobin level and urinalysis showing no active signs of infection. Hyponatremia: Resolved sodium levels 139 today. Discontinue IV fluids. Have encouraged patient to improve oral intake. Patient continues to have poor oral intake. Complains of mild nausea on and off. Liver functions within normal limits. CT abdomen unremarkable for any liver pathology. Abdominal examination unremarkable as well. We will change the diet to bland diet for now and advance as possible. Protonix 40 mg daily for PUD prophylaxis. HTN: C/w home medications of [place], Lisinopril and Sotalol. BP well controlled for now. Bronchitis: Symptomatic treatment with Tessalon Perles 3 times daily as needed. Will add Flonase twice daily. Patient has received Rocephin and doxycycline for 3 days for possible UTI and atypical pneumonia. We will switch to levofloxacin oral 750 mg for 3 more days to finish a 5-day course. DNR/DNI If patient continues to do well can plan to discharge tomorrow. Patient would do better with going to SNF in view of severe deconditioning and generalized weakness but patient has refused the option and would like to go home. We will try to arrange for home health. Daughters at bedside understand the plan of treatment and agree. Attestations Medical Necessity Statement*: For resolving hyponatremia and generalised weakness Time Spent in Patient Care: Greater than 35 minutes Coding Level of Care Code Acute Rock Singer for g Fwd Diagnoses Weakness generalized R53.1 Hyponatremia E87.1 CAD (coronary artery disease) I25.10 Hypertension I10 Hyperlipidemia E78.5 Atrial fibrillation I48.91 Acute bronchitis J20.9
[2019-08-09] MEDS: lisinopril 20 mg Tablet PO (12:20)
[2019-08-09] MEDS: pantoprazole DR 40 mg Tablet PO (17:03)
[2019-08-09] MEDS: fluticasone nasal spray 16gm Btl 1 SPRAY NASAL (17:03)
[2019-08-09] MEDS: atorvastatin 40 mg Tablet PO (21:00)
[2019-08-09] MEDS: ondansetron 2 mg/ML SDV 2 mL 4 MG IVP (22:36)
[2019-08-10] VITALS (7 sets, daily range): BP systolic 128–180; BP diastolic 69–95; PULSE 61–86; RESP 16–18; TEMP 36.7–36.9; O2SAT 93–97
[2019-08-10 05:13] LABS: Basophils % 0.1 %; Eosinophils # 0.1 10^3/uL (0.0-0.8); Hematocrit 38.6 % (37.0-47.0); Hemoglobin 12.8 g/dL (11.5-15.3); Lymphocytes # 1.6 10^3/uL (0.8-4.8); Lymphocytes % 22.9 %; Mean Corpuscular HGB Conc 33.2 g/dL (30.0-36.0); Mean Corpuscular Hemoglobin 29.6 pg (28.0-34.0); Mean Corpuscular Volume 89.4 fL (81-99); Mean Platelet Volume 11.9 fL (7.4-10.4); Monocytes # 0.9 10^3/uL (0.2-0.9); Monocytes % 13.1 %; Neutrophils # 4.4 10^3/uL (1.8-7.7); Neutrophils % 62.6 %; Nucleated Red Blood Cells % 0 %; Platelet Count 205 10^3/cmm (130-400); Red Blood Count 4.32 10^6/uL (4.1-5.3); Red Cell Distribution Width 13.3 % (12.1-15.1)
[2019-08-10] MEDS: levoFLOXacin 750 mg Tablet PO (06:11)
[2019-08-10 06:41] LABS: Alanine Aminotransferase 7 U/L (0-33); Albumin Level 2.9 g/dL (3.5-5.2); Alkaline Phosphatase 63 IU/L (35-105); Anion Gap 16.5 (5-19); Aspartate Amino Transferase 18 U/L (0-32); Blood Urea Nitrogen 6 mg/dL (8-23); Calcium 9.1 mg/dL (8.5-10.5); Carbon Dioxide 26 mmol/L (22-29); Chloride 97 mmol/L (98-107); Glucose 87 mg/dL (65-115); Magnesium 1.6 mg/dL (1.7-2.3); Phosphorus 2.8 mg/dL (2.5-4.5); Potassium 3.5 mmol/L (3.5-5.1); Sodium 136 mmol/L (136-145); Total Bilirubin 0.7 mg/dL (0.15-1.2); Total Protein 5.9 g/dL (6.6-8.7)
[2019-08-10] MEDS: clopidogrel 75 mg Tablet PO (08:30)
[2019-08-10] MEDS: amlodipine 5 mg Tablet PO (08:30)
[2019-08-10] MEDS: lisinopril 20 mg Tablet PO (08:30)
[2019-08-10] MEDS: fluticasone nasal spray 16gm Btl 1 SPRAY NASAL (08:30)
[2019-08-10] MEDS: pantoprazole DR 40 mg Tablet PO (08:30)
[2019-08-10] MEDS: sotalol 80 mg Tablet PO (08:30)
--- NOTE | 2019-08-10 12:40 | P.DS_ITS ---
Discharge Providers Date of Admission: 08/08/19 16:46 Date of Discharge: August 10, 2019 Attending Provider at Admission: Liang Conti MD Attending Provider at Discharge: Joon Pappas MD Diagnoses at Discharge Discharge Diagnosis (1) Weakness generalized: Status: Acute (2) Hyponatremia: Status: Acute (3) CAD (coronary artery disease): Status: Acute (4) Hypertension: Status: Acute (5) Hyperlipidemia: Status: Acute (6) Atrial fibrillation: Status: Acute (7) Acute bronchitis: Status: Acute Reason for Visit Reason for Visit: Reason For Visit: Dyspnea;resp failure Hospital Course Discharge Summary: Phoebe Avila is a 83 year old female with a past medical history of CAD, atrial fibrillation on sotalol not on anticoagulation due to history of GI bleeds, hypertension, hyperlipidemia recent history of bronchitis who presented to the ER on August 07 with complaints of not feeling well. Patient states that for the last week and a half she just has not been feeling well, fatigue, malaise, weakness, poor appetite. Patient was at [facility], diagnosed with bronchitis, was not put on any antibiotics, was put on antitussive agents, and sent home. Patient states that she has a mild nonproductive cough, intermittent fevers, no chills, feels nauseous, no vomiting, just does not have an appetite, no diarrhea, he denies dysuria, but states that she has been urinating more frequently. She also feels lightheaded, dizzy. On presentation to the ER she was found to be hyponatremic with sodium levels down to 128 with a stable hemoglobin and no white count. Her generalized weakness was thought most likely due to hyponatremia which was thought to be hypovolemic hyponatremia treated with IV fluids. Other causes of generalized weakness like infection were ruled out with no fever, normal white count, unremarkable imaging of CT chest abdomen pelvis. Patient's urinalysis was negative for any kind of infection. She was started on telemetry monitoring to look for any arrhythmias. Her sodium levels gradually improved with IV fluids with on day of discharge being 136. Patient started feeling a lot better and was able to walk around with physical therapy. Given the generalized weakness patient was advised to go to SNF for further rehabilitation but she refused so home health has been set for her. Patient was complaining of poor oral intake?she would feel nauseous on eating so her diet was changed to bland which she was able to tolerate well. CT abdomen was negative for any liver or gallbladder pathology but ultrasound liver showed mild biliary sludge without any gallstones or obstruction. Patient liver functions remained normal and her Whitlock sign was negative so she has been advised to follow-up with surgery as an outpatient for further evaluation. Physical Exam Narrative: EXAM NARRATIVE: General: No acute distress, AO x3 HEENT: PERRLA, pupils bilaterally equal and reactive Chest: Normal vesicular breath sounds, no added sounds, equal good air entry bilaterally CVS: S1-S2 regular, no murmurs, no tachycardia, no gallops, no rubs Abdomen: Soft, nontender, no organomegaly, bowel sounds present Neuro: No focal deficits, no facial deformity, AO x3, power 5/5 in all limbs Discharge Data Data Completed and Pending: Completed Studies During Hospitalization Category Date Time Status CT chest abd pel wo con Urgent Cat Scan 08/07/19 16:[address] head wo con* 7 0450 Urgent Cat Scan 08/07/19 12:07 Completed XR chest 2V* [id number] 6 Urgent Exams 08/07/19 11:11 Completed CV echo complete* [id number] Urgent Ultrasound 08/07/19 16:51 Completed US liver [id number] Ro utine Ultrasound 08/10/19 15:07 Completed Pending at discharge Category Date Time Status Complete Blood Co unt w/Auto AM LABS Lab 08/11/19 04:00 Ordered Immunochemical Fe [place] OCB Stat Lab 08/07/19 16:51 Uncollected Labs from last 24 hours 08/10/19 08/10/19 06:08 04:45 WBC 7.0 RBC 4.32 Hgb 12.8 Hct 38.6 MCV 89.4 D MCH 29.6 MCHC 33.2 RDW 13.3 Plt Count 205 MPV 11.9 H Neut % (Auto) 62.6 Lymph % (Auto) 22.9 Rich % (Auto) 13.1 Eos % (Auto) 1.0 Baso % (Auto) 0.1 Neut # (Auto) 4.4 Lymph # (Auto) 1.6 Rich # (Auto) 0.9 Eos # (Auto) 0.1 Baso # (Auto) 0.0 Nucleated RBC % (a uto) 0 Nucleated RBCs # 0.0 Sodium 136 Potassium 3.5 Chloride 97 L Carbon Dioxide 26 Anion Gap 16.5 BUN 6 L Creatinine 0.4 L Glucose 87 Calcium 9.1 Phosphorus 2.8 Magnesium 1.6 L Total Bilirubin 0.7 AST 18 ALT 7 Alkaline Phosphata se 63 Total Protein 5.9 L Albumin 2.9 L Globulin 3.0 Vitals: Last Vital Signs Temp 98.2 F 08/10/19 11:38 Pulse 86 08/10/19 11:38 Resp 18 08/10/19 11:38 BP 149/95 08/10/19 11:38 Pulse Ox 96 08/10/19 11:38 Discharge Plan Discharge Patient Disposition: Home Health Service Condition: Stable Prescriptions: New levofloxacin 750 mg Tablet 750 mg PO DAILY@0600 Qty: 3 RF: 0 fluticasone propionate 50 mcg/actuation [place],Suspension 1 spray nasal BID Qty: 50 RF: 0 Continued atorvastatin 40 mg tablet 40 mg PO BEDTIME RF: 0 sotalol 80 mg tablet 80 mg PO BID RF: 0 lisinopril 20 mg tablet 20 mg PO DAILY RF: 0 clopidogrel 75 mg tablet 75 mg PO DAILY RF: 0 amlodipine 5 mg tablet 5 mg PO DAILY RF: 0 Tessalon Perles 100 mg Capsule 100 mg PO TID PRN (Reason: Cough) RF: 0 Discharge Orders: Discharge Order (Routine); Ordered 08/10/19 Ordered By: Joon Pappas Referrals: Fausto Hernández MD [Physician] - 2 weeks Discharge Diet: Advance as tolerated and As Directed Discharge Activity: Resume usual activity Activity Restrictions/Additional Instructions: [place] diet consisting of banana, rice, applesauce, toast advancing as tolerated. 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
--- NOTE | 2019-08-10 15:07 | US_ITS ---
WS: [id number] ABDOMINAL ULTRASOUND LIMITED REASON FOR VISIT: r/o cholelithiasis. Persistent nausea TECHNIQUE: Grayscale and Doppler ultrasound examination of the abdomen. FINDINGS: Pancreas: Appears normal. Abdominal aorta and IVC: Appears normal. Liver: Liver measures 12.6 cm in length. Normal hepatopedal portal circulation. Gallbladder: Gallbladder wall thickness measures 2.4 mm. Sludge in the gallbladder is noted. Right kidney: Right kidney measures 9.1 cm x 3.4 cm x 3.2 cm. Right kidney cortex measures 0.79 cm. N o hydronephrosis or stones. Common bile duct measures 0.21 cm. US/US liver [id number] IMPRESSION: Questionable biliary sludge but no stones in the gallbladder.
--- NOTE | 2019-08-10 17:45 | PC.SOCIAL ---
pharmacy called to clarify okay to take Levaquin with Sotalol due to risk of QT prolongation and wanted to clarify if should dispense one bottle of the Fluticasone. Verified with Dr Elyse aguilera to complete the 3 day course of Levaquin and one bottle of Fluticasone. Called and updated Mikey at [facility] in [facility]
== END 2019-08-10 15:00 | disposition home health service (06) | DRG 641 ==
LOC: ER 15:15 → MEDSURG 16:02
PROVIDERS: Admitting Provider Family Medicine; Emergency Provider Family Medicine; Visit Provider Student in an Organized Health Care Education/Training Program
DX: E87.1 Hypo-osmolality and hyponatremia (principal); I25.10 Atherosclerotic heart disease of native coronary artery without angina pectoris; E78.5 Hyperlipidemia, unspecified; I48.91 Unspecified atrial fibrillation; E86.1 Hypovolemia; I10 Essential (primary) hypertension; J20.9 Acute bronchitis, unspecified; Z79.02 Long term (current) use of antithrombotics/antiplatelets; Z79.899 Other long term (current) drug therapy; R59.1 Generalized enlarged lymph nodes
CPT/HCPCS: 12345; 36415; 70450; 71046; 71250; 74176; 76705; 80053; 80061; 81001; 83036; 83605; 83690; 83735; 83880; 84100; 84145; 84443; 84484; 85025; 85378; 85651; 86140; 87804; 93005; 93306; 94664; 96375; 97110; 97116; 97161; 97166; 97530; 97535; 99283; G0378; J0360; J0696; J1200; J1885; J1940; J2405; J7030; J7040